=== PATIENT | male | born 1990 | race Caucasian/White ===

== ENCOUNTER 2016-11-26 02:53 | Emergency (ER) | payer SELFPAY | END 2016-11-26 03:42 | disposition left against medical advice (07) | LOC: ERS 02:53 | DX: Z53.21 Procedure and treatment not carried out due to patient leaving prior to being seen by health care provider (principal) | CPT/HCPCS: 93005 ==

== ENCOUNTER 2017-06-03 00:58 | Emergency (ER) | payer SELFPAY | END 2017-06-03 01:44 | disposition left against medical advice (07) | LOC: ERS 00:58 | DX: Z53.21 Procedure and treatment not carried out due to patient leaving prior to being seen by health care provider (principal) ==

== ENCOUNTER 2018-01-09 04:26 | Emergency (ER) | payer SELFPAY ==
[2018-01-09] MEDS ORDERED: Morphine 4 MG/ML VIAL ONE (04:44)
[2018-01-09] MEDS ORDERED: Ondansetron PF 4 MG/2 ML Vial ONE (04:44)
[2018-01-09] MEDS ORDERED: Adacel (T-DAP) 0.5 ML VIAL ONE (04:44)
[2018-01-09 04:54] LABS: #Basophils 0.1 thou/uL (0.0-0.2); #Eosinphils 0.1 thou/uL (0.0-0.7); #Lymphocytes 0.9 thou/uL (1.20-3.40); #Monocytes 0.8 thou/uL (0.11-0.59); %Basophils 0.7 % (0.0-1.0); %Eosinophils 0.7 % (0.0-10.0); %Lymphocytes 8.2 % (21.0-51.0); %Monocytes 7.2 % (0.0-10.0); %Neutrophils 83.3 % (42.0-75.0); Hemoglobin 15.1 g/dL (14.0-18.0); Mean Corpuscular HGB CONC 31.3 g/dL (32.0-36.0); Mean Corpuscular Hemoglobin 27.9 pg (27.0-31.0); Mean Corpuscular Volume 89.1 fL (78.0-98.0); Mean Platelet Volume 7.5 fL (7.4-10.4); Platelet Count 239 thou/uL (130-400); RBC Distribution Width 11.9 % (11.5-14.5); Red Blood Cell (RBC) Count 5.42 mill/uL (4.70-6.10); White Blood Cell (WBC) Count 10.8 thou/uL (4.8-10.8)
[2018-01-09 05:00] LABS: Prothrombin Time 13.3 SEC (12.0-14.7)
[2018-01-09 05:17] LABS: ALT (SGPT) 27 U/L (8-55); AST (SGOT) 46 U/L (5-34); Albumin 4.8 g/dL (3.5-5.0); Alcohol Less than 10 mg/dL (Less than 10); Alkaline Phosphatase 95 U/L (40-150); Anion Gap 15 mmol/L (10-20); BUN (Urea Nitrogen) 16 mg/dL (8.9-20.6); Bilirubin, Total 1.1 mg/dL (0.2-1.2); Calc. Creatinine Clearance 0 mL/min (70-130); Calcium 9.9 mg/dL (7.8-10.44); Carbon Dioxide 24 mmol/L (22-29); Chloride 101 mmol/L (98-107); Estimated GFR-MDRD 80; Glucose 162 mg/dL (70-105); Potassium 3.5 mmol/L (3.5-5.1); Protein, Total 7.8 g/dL (6.0-8.3); Sodium 136 mmol/L (136-145)
[2018-01-09] MEDS ORDERED: KETAMINE 100 MG/ML (5ML VIAL) ONE (05:28)
[2018-01-09] MEDS ORDERED: Bacitracin Zinc 1 Packet ONE (06:16)
[2018-01-09 06:29] LABS: Troponin I Less than 0.010 ng/mL (< 0.028)
[2018-01-09 06:34] LABS: CKMB 10.5 ng/mL (0-6.6)
[2018-01-09] MEDS ORDERED: Propofol 1,000 MG/100 ML VIAL IV ONE (07:01)
--- NOTE | 2018-01-09 07:40 | RAD ---
TWO VIEWS OF THE LEFT ELBOW: DATE: 01/09/2018. TIME: 7:18 a.m. COMPARISON: 01/09/2018 at 5:44 a.m. HISTORY: Dislocation of left elbow status post reduction. FINDINGS: The previously noted dislocation of the left elbow has been reduced. Casting material is in place. A small fracture fragment projects anterior to the distal left humerus measuring approximately 4 mm i n greatest dimension, donor site uncertain. IMPRESSION: Status post reduction of previously noted left elbow dislocation. Small fracture fragment anterior t o distal left humerus as detailed above. POS: [facility]
--- NOTE | 2018-01-09 07:54 | RAD ---
LEFT SHOULDER TWO VIEWS: History: Injury. Left shoulder pain. FINDINGS/IMPRESSION: No acute fracture or dislocation is seen. POS: [facility]
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
--- NOTE | 2018-01-09 07:59 | RAD ---
LEFT ELBOW TWO VIEWS: Indication: Post reduction. Comparison: 01-09-18 at 4:49 a.m. FINDINGS: The left elbow remains posterolaterally dislocated. Small avulsion fracture remains adjacent to the t rochlea. Soft tissue swelling persists. IMPRESSION: Posterolateral disclocation of the left elbow joint with avulsion fractures adjacent to the trochlea. POS: [facility]
--- NOTE | 2018-01-09 08:01 | RAD ---
jLEFT ELBOW TWO VIEWS: History: Left elbow injury. FINDINGS/IMPRESSION: Two oblique views are included. There is posterior dislocation of the radial head. An irregular 0.6 c m ossific fragment lies immediately distal to the medial epicondyle. Please see subsequent exams for better delineation of the injury. POS: [facility]
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
[2018-01-09 08:30] LABS: Bilirubin Negative (Negative); Blood, Urine Negative (Negative); Clarity CLEAR (Clear); Glucose, Urine (Dipstick) 250 mg/dL (Negative); Leukocyte Negative (Negative); Nitrite Negative (Negative); Protein, Urine (Dipstick) Negative (Neg-Trace); Urobilinogen 0.2 mg/dL (0.2-1.0); pH, Urine 6.5 (5.0-9.0)
[2018-01-09 08:37] LABS: Specific Gravity, Urine 1.055 (1.002-1.036)
[2018-01-09 08:42] LABS: Medtox Reader # READER 1; THC/Cannabinoid Screen Detected (NotDetected)
[2018-01-09 08:43] LABS: Amphetamine Detected (NotDetected); Barbiturates Screen Not Detected (NotDetected); Benzodiazepine Screen Not Detected (NotDetected); Cocaine Metabolite Screen Not Detected (NotDetected); Medtox Control Line Valid? VALID (VALID); Methadone Not Detected (NotDetected); Methamphetamine Not Detected (NotDetected); Opiate Screen Not Detected (NotDetected); Oxycodone Screen Not Detected (NotDetected); Phencyclidine (PCP) Not Detected (NotDetected); Tricyclic Screen Not Detected (NotDetected)
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
[2018-01-09] MEDS ORDERED: ISOVUE-370 76%-LOCM 1 ML ONE (13:30)
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
== END 2018-01-09 07:58 | disposition home or self-care (01) ==
LOC: ERS 04:26
DX: S53.005A Unspecified dislocation of left radial head, initial encounter (principal); S00.81XA Abrasion of other part of head, initial encounter; S30.810A Abrasion of lower back and pelvis, initial encounter; S60.512A Abrasion of left hand, initial encounter; S80.212A Abrasion, left knee, initial encounter; S90.811A Abrasion, right foot, initial encounter; F17.210 Nicotine dependence, cigarettes, uncomplicated; V89.2XXA Person injured in unspecified motor-vehicle accident, traffic, initial encounter
CPT/HCPCS: 24600; 71260; 74177; 80053; 80306; 80307; 81003; 82553; 84484; 85025; 85610; 86850; 86900; 86901; 90471; 90715; 93005; 96361; 96374; 96375; 99152; 99153; G0390; J2270; J2405; J2704